=== PATIENT | male | born 1995 ===

== ENCOUNTER 2017-12-19 10:38 | Emergency (ER) | payer OTHER ==
[~2017-12-19] VITALS: Ht 167.6 cm; Wt 72.6 kg
== END 2017-12-19 12:57 | disposition home or self-care (01) ==
LOC: ER 10:38
DX: S01.112A Laceration without foreign body of left eyelid and periocular area, initial encounter (principal); W22.8XXA Striking against or struck by other objects, initial encounter; Y99.0 Civilian activity done for income or pay
CPT/HCPCS: 12011; 99283

== ENCOUNTER 2017-12-24 07:21 | Emergency (ER) | payer OTHER ==
[~2017-12-24] VITALS: Ht 165.1 cm; Wt 65.3 kg
== END 2017-12-24 08:10 | disposition home or self-care (01) ==
LOC: ER 07:21
DX: S01.112D Laceration without foreign body of left eyelid and periocular area, subsequent encounter (principal); X58.XXXD Exposure to other specified factors, subsequent encounter